=== PATIENT | male | born 1975 | race Caucasian/White ===

== ENCOUNTER 2019-06-22 01:37 | Emergency (ER) | payer OTHER, SELFPAY ==
[2019-06-22 01:39] VITALS: BP 142/77; PULSE 65; RESP 18; TEMP 36.8; O2SAT 97; BMI 30.4
--- NOTE | 2019-06-22 01:43 | EKG12_ITS ---
Test Reason : SHOULDER PAIN Blood Pressure : / mmHG Vent. Rate : 055 BPM Atrial Rate : 055 BPM P-R Int : 178 ms QRS Dur : 096 ms QT Int : 444 ms P-R-T Axes : 049 036 016 degrees QTc Int : 424 ms Sinus bradycardia with sinus arrhythmia Otherwise normal ECG Confirmed by MARYANNE DONAHUE, MOSHE ([id number]), kiln mechanic AMY GASTON ([id number]) on 06/22/2019 1:15:52 PM Referred By: TARUN Confirmed By:REYMUNDO MADDEN MD
--- NOTE | 2019-06-22 02:00 | ED.VISSUMM ---
- ER Visit Summary Date of Service: 06/22/19 Chief Complaint: Left shoulder pain History of Present Illness: The patient is a 43 M who complains of pain in his left shoulder and down his arm. Started yesterday. He equates it to about 5 hours. It is dull and aching. Nothing makes it better or worse. Denies any falls or injuries. He took nothing for this at home. He does have a strong family history of cardiac disease and he is concerned about this which is why he came in tonight. Denies any neck or back pain. Physical Examination: Vital signs reviewed. HEENT exam unremarkable. Heart is regular rate and rhythm without murmurs. Lungs are clear to auscultation. Abdomen is soft and nontender. Extremities reveal no edema. Left shoulder has full range of motion without any pain. No palpable tenderness of the back, shoulder or arm. Peripheral pulses are equal. Skin exam normal. Neurologic exam normal. Test Results: EKG is sinus rhythm with a rate of 55. No ST changes. Intervals normal. Emergency Department Course and Treatment: The patient was concerned about a cardiac issue causing this left arm pain. I do not feel that this is the cause. He has a normal EKG. he does not want a shoulder x-ray. He has no chest pain. His only risk factor is a family history. He has no hypertension, diabetes, cholesterol or smoking history. I feel he can be discharged home to use NSAIDs. He will follow-up with his PCP Treatment Plan: [] Disposition: Discharge Impression: Left shoulder pain This note was generated with [employer] dictation software. It may contain incorrect words, spelling, and punctuation that were not noted in review of the chart prior to signing ED Disposition - Plan for ED Patient: Disposition: Home or Assisted Living Instructions: SHOULDER PAIN (Uncertain Cause) Referrals: Arturo Ruth MD [Primary Care Provider] -
[2019-06-22 02:08] VITALS: BP 131/75; RESP 18
== END 2019-06-22 02:10 | disposition home or self-care (01) ==
LOC: ED 02:09
PROVIDERS: Emergency Provider Emergency Medicine; PCP Family Medicine
DX: M25.512 Pain in left shoulder (principal); Z82.49 Family history of ischemic heart disease and other diseases of the circulatory system; M54.2 Cervicalgia
CPT/HCPCS: 93005; 99282

== ENCOUNTER → 2022-08-03 | Outpatient (CLI) | payer OTHER, SELFPAY ==
--- NOTE | 2022-08-03 06:35 | MRI_ITS ---
EXAM: MR LEFT UPPER EXTREMITY WITHOUT INTRAVENOUS CONTRAST, WRIST CLINICAL INDICATION: SCAPHOID FRACTURE, TENDON/LIGAMENT INJURY TECHNIQUE: Multiplanar and multisequence MR images of the left wrist without intravenous contrast. This report was created using [employer] report generation technology. COMPARISON: July 21, 2012 FINDINGS: LIGAMENTS: SCAPHOLUNATE: Unremarkable. No change in the scapholunate interosseous ligament or lunatotriquetral interosseous ligament. LUNOTRIQUETRAL: Unremarkable. Intact. TENDONS: FLEXOR COMPARTMENTS: Carpal tunnel contents are unremarkable. EXTENSOR COMPARTMENTS: Extensor and flexor tendons are unremarkable. No tenosynovitis or tendon tear identified. NERVES: MEDIAN: Unremarkable. Median nerve is normal in size and signal intensity. ULNAR: Unremarkable. Ulnar nerve is normal in size and signal intensity. MUSCLES: Muscles appear normal. FLUID: Unremarkable. No joint effusion. CARTILAGE: Unremarkable. The articular cartilage is preserved. TRIANGULAR FIBROCARTILAGE COMPLEX: Triangular fibrocartilage complex is intact. BONES/JOINTS: Age-indeterminate scaphoid waist fracture identified with patchy marrow edema on both sides of the waist. Correlate with date of injury. Ulna minus deformity. No osteonecrosis of the lunate. Cystic changes are seen at the radial aspect of the trapezium. OTHER SOFT TISSUES: Unremarkable. No ganglion. OTHER FINDINGS: Palmar aponeurosis is unremarkable. MRI/Upper Ext Joint Only(Routine) IMPRESSION: 1. No scapholunate and lunatotriquetral interosseous ligament tear. 2. Age-indeterminate scaphoid waist fracture identified with patchy marrow edema on both sides of the waist. Correlate with date of injury. Electronically Signed: Nael Dickerson MD at 21:37 EDT ,
== END | disposition home or self-care (01) ==
PROVIDERS: PCP Family Medicine; Referring Provider Family Medicine; Visit Provider Family Medicine
DX: S62.002A Unspecified fracture of navicular [scaphoid] bone of left wrist, initial encounter for closed fracture (principal)
CPT/HCPCS: 73221

== ENCOUNTER → 2024-12-17 | Outpatient (CLI) | payer OTHER, SELFPAY ==
--- NOTE | 2024-12-17 07:08 | CT_ITS ---
PROCEDURE: LIMITED CHEST CT CARDIAC ONLY 12/17/2024 REASON FOR EXAM: SCREEN, DYSLIPIDEMIA Family history. TECHNIQUE: Procedure Code: [id number] Modality: CT Procedure: LIMITED CHEST CT CARDIAC ONLY CONTRAST: None One or more dose reduction techniques were used (e.g., Automated exposure control, adjustment of the mA and/or kV according to patient size, use of iterative reconstruction technique). RADIATION DOSE SUMMARY: CTDlvol: 12.19 mGy DLP: 170.66 mGycm COMPARISON: None FINDINGS: Calcification of the aortic valve. No definite coronary artery calcification is seen. Mild linear scarring at the lung bases. CT/Limited Chest CT Cardiac Only IMPRESSION: Calcification of the aortic valve. Reading Location: [facility]
--- OUTSIDE RECORDS SUMMARY | 2024-12-17 07:21 | XMS RPT_ITS | CCD ---
Author Organization [facility] Care Team Providers Care [employer] Tile Maker Name Role Phone Dr. Arturo Ruth Primary Care Provider [phone] Dr. Beau Moran Attending Provider [phone] Kleber Ruth Referring Unavailable Kleber Ruth Attending Unavailable Kleber Ruth Primary Care Unavailable Encounters Encounter Date Encounter Type Care Provider Facility Start: 12-17-2024 ambulatory Kleber Ruth Faci lity:[facility] Start: 12-13-2024 Encounter for genera l adult medical examination without abnormal findings Kleber Ruth [facility] Start: 08-03-2022 End: 08-03-[address] Arturo Ruth Work Phone: [facility] Work Phone: Start: 08-03-2022 End: 08-03-[address] Arturo Ruth Work Phone: [facility] Start: 07-21-2022 End: 07-21-[address] Arturo Ruth Work Phone: [facility] Radiology Procedures Date Procedure Procedure Detail Performing Clinician Start: 08-03-2022 MRI of joint of lowe r extremity Dr. Arturo Ruth Work Phone: Start: 07-21-2022 Plain x-ray of wrist Dr Nikolay Ruth Work Phone: Payers Date Payer Category Payer Self-pay [id number] 2024 Unknown [id number] Private Health Insurance [facility] [id number] Unknown [id number] Unknown [facility] [id number] Unknown [id number] Social History Date Type Detail Facility Start: 06-22-2019 Tobacco smoking stat [facility] Unknown if ever smoked [facility] Start: 06-22-2019 Non-smoker [facility] Start: 1975 Sex Assigned At Male W [facility] Evaluation note Note Date & Type Note Facility Evaluation note No assessment information availa ble [facility] Work Phone: Chief Complaint and Reason for Visit Chief Complaint XRAY FX OF SCAPHOID OF LEFT WRIST Advance Directives No Advanced Directives Records Found Advance Directive Response Recorded Date/ Time Living Will No June 22, 2019 1:44am Power of Hair Boiler No June 21 1:44am Summary Purpose Family History No Family History Records Found Additional Source Comments Care Teams (unrecognized sec tion and content) Team Status: Active Member Role Status Dates Dr. Arturo Ruth MD Family Provider Active Dr. Arturo Ruth MD Primary Care Provider Activ e Team Status: Inactive Member Role Status Dates Dr. Arturo Ruth MD Primary Care Provider Activ e Dr. Beau Moran MD Attending Provider Active Team Status: Inactive Member Role Status Dates Dr. Arturo Ruth MD Primary Care Provider, Attending Provider, Referring Provider Active Goals (unrecognized section and content) Goals may be documented in a n alternate section (unrecognized sect ion and content) No Status Records Found INFORMATION SOURCE (unrecogn ized section and content) DATE CREATED AUTHOR 12/15/2024 [facility] FOR RECORDS PERTAINING TO PATIENTS WHO ARE OR HAVE BEEN ENROLLED IN A CHEMICAL DEPENDENCY/SUBSTANCEABUSE PROGRAM, SOME INFORMATION MAY BE OMITTED. This clinical summary was aggregated from multiple sources. Caution should be exercised in using it in the provision of clinical care. This summary normalizes information from multiple sources, and as a consequence, information in this document may materially change the coding, format and clinical context of patient data. In addition, data may be omitted in some cases. CLINICAL DECISIONS SHOULD BE BASED ON THE PRIMARY CLINICAL RECORDS. [facility]. provides no warranty or guarantee of the accuracy or completeness of information in this document.
--- NOTE | 2024-12-26 19:14 | CA.SCORE ---
Calcium Scoring Date of Study:: 12/17/24 Indications Indications: Hyperlipidemia Coronary Calcium Scoring: High-resolution Computed Tomographic imaging of the chest was performed on [12/17/2024], with particular attention paid to the coronary arteries. Images from the examination were analyzed for the presence and extent of coronary artery calcification , using coronary calcium quantification software. The patient tolerated the procedure well and there were no complications. The results of the coronary calcification analysis are provided below. Findings Coronary Artery Left Main (LM): 0 Left Anterior Descending (LAD): 0 Left Circumflex (LCX): 0 Right Coronary Artery (RCA): 0 Total Agatston Score: 0 Percentile Rankin% Calcium Scoring Interpretation: Different methods to categorize the overall amount of coronary plaque. Overall amount CAC SIS Visual of coronary plaque P1 Mild -100 <2 1-2 vessels with mild amount of plaque P2 Moderate 101-300 3-4 1-2 vessels with moderate amount, 3 vessels with mild amount of plaque P3 Severe 301-999 5-7 3 vessels with moderate amount, 1 vessel with severe amount of plaque P4 Extensive >1000 >8 2-3 vessels with severe amount of plaque Conclusion: No atherosclerotic plaquing noted
== END | disposition home or self-care (01) ==
PROVIDERS: PCP Family Medicine; Referring Provider Family Medicine; Visit Provider Family Medicine
DX: Z00.00 Encounter for general adult medical examination without abnormal findings (principal); E78.5 Hyperlipidemia, unspecified
CPT/HCPCS: 75571; 76380